=== PATIENT | female | born 1950 | race Caucasian/White ===

== ENCOUNTER 2017-07-27 18:33 | Emergency (ER) | payer OTHER ==
[~2017-07-27] VITALS: Ht 170.2 cm; Wt 77.2 kg
[~2017-07-27 18:33] MED LIST: CRESTOR10 MG PO; METOPROLOL SUCC25 MG PO
[2017-07-27] MEDS ORDERED: NORCO 5/3251 TABLET PO (23:32)
[2017-07-28 00:54] VITALS: BP 139/71
== END 2017-07-28 00:59 | disposition home or self-care (01) ==
LOC: EME 18:33
PROC: 2W39X1Z Immobilization of Left Upper Extremity using Splint (ICD-10-PCS; principal; 2017-07-28)
DX: S52.502A Unspecified fracture of the lower end of left radius, initial encounter for closed fracture (principal); S80.02XA Contusion of left knee, initial encounter; S50.311A Abrasion of right elbow, initial encounter; W01.0XXA Fall on same level from slipping, tripping and stumbling without subsequent striking against object, initial encounter; E78.5 Hyperlipidemia, unspecified; Z87.891 Personal history of nicotine dependence
CPT/HCPCS: 71046; 73110; 73564; 93005; 99281; 99284